=== PATIENT | male | born 1995 | race African-American/Black ===

== ENCOUNTER 2018-10-07 17:58 | Emergency (ER) | payer OTHER | END 2018-10-07 23:05 | disposition home or self-care (01) | LOC: FTE 17:58 | DX: S61.012A Laceration without foreign body of left thumb without damage to nail, initial encounter (principal); W26.0XXA Contact with knife, initial encounter; Y92.9 Unspecified place or not applicable | CPT/HCPCS: 12001; 99283-25 ==